=== PATIENT | male | born 1935 | race Caucasian/White ===

== ENCOUNTER 2016-04-22 17:19 | Emergency (ER) | payer MEDICARE ==
[~2016-04-22] VITALS: Ht 182.9 cm; Wt 92.1 kg
[2016-04-22 17:20] VITALS: BP 122/68
[2016-04-22 17:56] LABS: MEAN CORPUSCULAR HEMOGLOBIN 31.6 PG (27.0-31.0); MEAN CORPUSCULAR HGB CONC 33.1 G/DL (32.0-36.0); MEAN CORPUSCULAR VOLUME 95 FL (80-99); MEAN PLATELET VOLUME 7.6 FL (6.5-10.1); PLATELET COUNT 187 K/UL (150-450); RED BLOOD COUNT 4.24 M/UL (4.70-6.10); RED CELL DISTRIBUTION WIDTH 11.5 % (11.6-14.8); WHITE BLOOD COUNT 15.2 K/UL (4.8-10.8)
[2016-04-22 18:07] LABS: ALANINE AMINOTRANSFERASE 18 U/L (3-41); ALBUMIN/GLOBULIN RATIO 1.1 (1.0-2.7); ANION GAP 16 (5-15); ASPARTATE AMINO TRANSFERASE 26 U/L (5-40); CALCIUM 8.7 mg/dL (8.6-10.2); CARBON DIOXIDE 25 mEQ/L (20-30); CHLORIDE 100 mEQ/L (98-107); CREATININE 1.3 mg/dL (0.7-1.2); HEMOLYSIS 13; POTASSIUM 3.9 mEQ/L (3.4-4.9); SODIUM 141 mEQ/L (135-145); TOTAL PROTEIN 6.3 g/dL (6.6-8.7)
[2016-04-22 18:08] LABS: TROPONIN I < 0.30 ng/mL (<=0.30)
[2016-04-22 18:17] LABS: CKMB 3.1 ng/mL (< 6.7)
[2016-04-22 18:44] LABS: BAND NEUTROPHILS % (MANUAL) 1 % (0-8); BASOPHILS % (MANUAL) 0 % (0-2); EOSINOPHILS % (MANUAL) 1 % (0-3); LYMPHOCYTES % (MANUAL) 9 % (20-45); NEUTROPHILS % (MANUAL) 85 % (45-75); PLATELET ESTIMATE ADEQUATE; PLATELET MORPHOLOGY NORMAL; TOTAL CELLS COUNTED 100
[2016-04-22 19:00] VITALS: BP 146/86
[2016-04-22 19:30] VITALS: BP 150/90
[2016-04-22 19:59] VITALS: BP 148/81
[2016-04-22 20:12] VITALS: BP 148/81
--- NOTE | 2016-04-22 22:05 | Emergency Room Report ---
History of Present Illness General Chief Complaint: Chest Pain Source: Patient, Family Member Present Illness HPI 81-year-old male presents ED complaining of chest pain. States that he walked up several flights of stairs today felt short of breath after. States he was unable to catch his breath and had some chest pain, so he called 911. Patient states pain was midsternal, pressure-like, 7/10, nonradiating. Took nitroglycerin at home with relief. Was given aspirin by EMS. Patient denies chest pain at this time. Denies any fevers or chills. Denies cough. No other aggravating relieving factors. Denies any other associated symptoms Allergies: Coded Allergies: ADHESIVE TAPE (Verified Allergy, Unknown, 04/22/16) ATENOLOL (Verified Allergy, Unknown, 04/22/16) BETA-BLOCKERS (BETA-ADRENERGIC BLOC (Verified Allergy, Unknown, 04/22/16) PENICILLIN G (Verified Allergy, Unknown, 04/22/16) Patient History Past Medical History: CAD, renal disease Past Surgical History: none Pertinent Family History: none Social History: Denies: alcohol use, drug use, smoking Immunizations: UTD Reviewed Nursing Documentation: PMH: Agreed, PSxH: Agreed Nursing Documentation-PMH Hx Cardiac Problems: Yes - Stent x4, AL, Bipass surgery, high cholesterol Hx Hypertension: Yes - CKD, Chronic artery disease, leukocytosis, left total knee replacement Review of Systems All Other Systems: negative except mentioned in HPI Physical Exam Vital Signs Date Time Temp Pulse Resp B/P Pulse Ox O2 Delivery O2 Flow Rate FiO2 04/22/16 17:09 98.2 91 16 122/68 98 Room Air 04/22/16 19:30 2.0 Sp02 EP Interpretation: reviewed, normal General Appearance: no apparent distress, alert, GCS 15, non-toxic Head: normocephalic, atraumatic Eyes: bilateral eye PERRL, bilateral eye normal inspection ENT: hearing grossly normal, normal pharynx, no angioedema, normal voice Neck: full range of motion, supple/symm/no masses Respiratory: chest non-tender, lungs clear, normal breath sounds, speaking full sentences Cardiovascular #1: regular rate, rhythm, no edema Cardiovascular #2: 2+ carotid (R), 2+ carotid (L), 2+ radial (R), 2+ radial (L) , 2+ dorsalis pedis (R), 2+ dorsalis pedis (L) Gastrointestinal: normal bowel sounds, non tender, soft, non-distended, no guarding, no rebound Rectal: deferred Genitourinary: normal inspection, no CVA tenderness Musculoskeletal: back normal, gait/station normal, normal range of motion, non- tender Neurologic: alert, oriented x3, responsive, motor strength/tone normal, sensory intact, speech normal Psychiatric: judgement/insight normal, memory normal, mood/affect normal, no suicidal/homicidal ideation Reflexes: 3+ bicep (R), 3+ bicep (L), 3+ tricep (R), 3+ tricep (L), 3+ knee (R) , 3+ knee (L) Skin: normal color, no rash, warm/dry, well hydrated Lymphatic: no adenopathy Medical Decision Making Diagnostic Impression: Primary Impression: ACS (acute coronary syndrome) ER Course Hospital Course 81-year-old male presents ED complaining of chest pain or shortness of breath. resolved upon arrival Differential diagnoses include: AL/unstable angina, contusion, muscle strain, PTX, rib fracture Clinical course Patient placed on stretcher. on ekg monitor tech. After initial history and physical I ordered labs, EKG, chest x-ray labs reviewed- noted leukocytosis, hb/hct, stable, electrolytes ok, trop negative Chest x-ray- no acute process EKG - NSR, no ischemic changes Because of insurance patient will be transferred to [facility]. I feel this is a highly complex case requiring extensive working including EKG/Rhythm strip, Xray/CT/US, Blood/urine lab work, repeat exams while in ED, and administration of strong opiates/narcotics for pain control, admission to hospital or close patient follow up. Diagnosis - ACS Transferred in serious condition Labs Test 04/22/16 17:40 White Blood Count 15.2 K/UL (4.8-10.8) Red Blood Count 4.24 M/UL (4.70-6.10) Hemoglobin 13.4 G/DL (14.2-18.0) Hematocrit 40.5 % (42.0-52.0) Mean Corpuscular Volume 95 FL (80-99) Mean Corpuscular Hemoglobin 31.6 PG (27.0-31.0) Mean Corpuscular Hemoglobin Concent 33.1 G/DL (32.0-36.0) Red Cell Distribution Width 11.5 % (11.6-14.8) Platelet Count 187 K/UL (150-450) Mean Platelet Volume 7.6 FL (6.5-10.1) Neutrophils (%) (Auto) % (45.0-75.0) Lymphocytes (%) (Auto) % (20.0-45.0) Monocytes (%) (Auto) % (1.0-10.0) Eosinophils (%) (Auto) % (0.0-3.0) Basophils (%) (Auto) % (0.0-2.0) Differential Total Cells Counted 100 Neutrophils % (Manual) 85 % (45-75) Lymphocytes % (Manual) 9 % (20-45) Monocytes % (Manual) 4 % (1-10) Eosinophils % (Manual) 1 % (0-3) Basophils % (Manual) 0 % (0-2) Band Neutrophils 1 % (0-8) Platelet Estimate Adequate Platelet Morphology Normal Red Blood Cell Morphology Normal Sodium Level 141 mEQ/L (135-145) Potassium Level 3.9 mEQ/L (3.4-4.9) Chloride Level 100 mEQ/L (98-107) Carbon Dioxide Level 25 mEQ/L (20-30) Anion Gap 16 (5-15) Blood Urea Nitrogen 15 mg/dL (7-23) Creatinine 1.3 mg/dL (0.7-1.2) Estimat Glomerular Filtration Rate mL/min (>60) Glucose Level 187 mg/dL (74-106) Calcium Level 8.7 mg/dL (8.6-10.2) Total Bilirubin 0.4 mg/dL (0.0-1.2) Aspartate Amino Transf (AST/SGOT) 26 U/L (5-40) Alanine Aminotransferase (ALT/SGPT) 18 U/L (3-41) Alkaline Phosphatase 92 U/L (40-129) Total Creatine Kinase 67 U/L (38-174) Creatine Kinase MB 3.1 ng/mL (< 6.7) Creatine Kinase MB Relative Index 4.6 Troponin I < 0.30 ng/mL (<=0.30) Total Protein 6.3 g/dL (6.6-8.7) Albumin 3.3 g/dL (3.5-5.2) Globulin 3.0 g/dL Albumin/Globulin Ratio 1.1 (1.0-2.7) EKG Diagnostic Results Rate: normal Rhythm: NSR ST Segments: no acute changes ASA given to the pt in ED: No - given by ems Rhythm Strip Diag. Results EP Interpretation: yes Rhythm: NSR, no PVC's, no ectopy Chest X-Ray Diagnostic Results EP Interpretation: Yes Findings: no consolidation, no effusion, no pneumothorax, no acute cardiopulmonary disease, other - cardiomegaly. sternotomy wires Number of Views: 1 Last Vital Signs Date Time Temp Pulse Resp B/P Pulse Ox O2 Delivery O2 Flow Rate FiO2 04/22/16 20:12 98.6 91 18 148/81 95 Nasal Cannula 2.0 Status: improved Disposition: ER T-[facility] Condition: Serious Referrals: [facility] (PCP) [place] STACK M.D. Apr 22, 2016 22:05
--- NOTE | 2016-04-23 10:15 | Diagnostic Imaging Report ---
Indication: CP Technique: XRAY CHEST 1 V Comparison: None. Findings: The patient has taken a poor inspiration. The cardiomediastinal silhouette is normal. The lungs are clear. There is no evidence of pleural fluid. There are sternal wires. Impression: Poor inspiratory chest. Evidence of previous surgery. Otherwise negative.
--- NOTE | 2016-04-25 14:00 | Cardiology Report ---
APPROVED REPORT EKG Measurement Heart [id number] Sinus rhythm with premature supraventricular complexes T wave abnormality, consider lateral ischemia Abnormal ECG
== END 2016-04-22 20:12 | disposition short-term general hospital (02) ==
LOC: EDBD 17:19 → EMR 17:59
DX: I24.9 Acute ischemic heart disease, unspecified (principal); I25.10 Atherosclerotic heart disease of native coronary artery without angina pectoris; I12.9 Hypertensive chronic kidney disease with stage 1 through stage 4 chronic kidney disease, or unspecified chronic kidney disease; N18.9 Chronic kidney disease, unspecified; Z96.652 Presence of left artificial knee joint; Z88.0 Allergy status to penicillin; Z88.8 Allergy status to other drugs, medicaments and biological substances; I25.2 Old myocardial infarction
CPT/HCPCS: 36415; 71010; 80053; 82550; 82553; 84484; 85007; 85025; 93005; 96360